=== PATIENT | female | born 1950 | race Caucasian/White ===

== ENCOUNTER 2017-02-19 07:20 | Day surgery (SDC) | payer BC, OTHER ==
[2017-02-19 07:57] LABS: *BILIRUBIN,URIN NEGATIVE (NEGATIVE); *BLOOD, URINE 1+ (NEGATIVE); *CLARITY,URINE CLEAR (CLEAR); *COLOR,URINE YELLOW (YELLOW); *KETONES,URINE NEGATIVE (NEGATIVE); *PROTEIN,URINE NEGATIVE (NEGATIVE); *UROBILINOGEN,URINE 0.2 E.U./dl (NORMAL); NITRITE, URINE NEGATIVE (NEGATIVE); PH,URINE 6.5 (5.0-8.0); UGLUCOSE NEGATIVE (NEGATIVE)
[2017-02-19 08:01] LABS: BASOPHILS % (AUTO) 0.6 % (0.0-2.0); EOSINOPHILS # (AUTO) 0.2 K/uL (0.0-0.7); HEMATOCRIT 41.5 % (37-47); LYMPHOCYTES % (AUTO) 38.1 % (20.5-51.5); MEAN CORPUSCULAR HEMOGLOBIN 29.3 UUG (27.0-31.0); MEAN CORPUSCULAR HGB CONC 34 g/dL (32.0-37.0); MEAN CORPUSCULAR VOLUME 87.1 FL (81.0-99.0); MONOCYTES # (AUTO) 0.4 K/UL (0.1-1.30); MONOCYTES % (AUTO) 6.9 % (0.0-11.0); NEUTROPHILS # (AUTO) 2.6 K/UL (1.8-8.9); NEUTROPHILS % (AUTO) 50.4 % (38.5-71.5); PLATELET COUNT (AUTO) 334 K/UL (150-450); RED BLOOD CELL COUNT(AUTO) 4.76 MIL/UL (4.2-5.4); RED CELL DISTRIBUTION WIDTH 12.1 % (11.5-14.5); WHITE BLOOD COUNT (AUTO) 5.2 K/UL (4.0-11.2)
[2017-02-19 08:10] LABS: LEUKOCYTE ESTERASE ,URINE TRACE (NEGATIVE)
[2017-02-19 08:11] LABS: BACTERIA,URINE FEW /HPF (NONE SEEN); MUCUS,URINE FEW /LPF (0-FEW); SQUAMOUS EPITHELIAL CELL,UR MODERATE /HPF (NONE SEEN); WBC,URINE 0-3 /HPF (0-3)
[2017-02-19 08:13] LABS: CALCIUM 8.5 mg/dL (8.5-10.1); CREATININE 0.9 mg/dL (0.6-1.3); POTASSIUM 4.2 mmol/L (3.5-5.1)
[2017-02-19] MEDS ORDERED: BALANCED SALT IRRIG SOLN COMB2 15 ML IRRIG.SOLN ONE (08:37)
[2017-02-19] MEDS ORDERED: BUPIVACAINE/EPI PF 0.5% 10 ML VIAL ONE (08:37)
[2017-02-19] MEDS ORDERED: NEO/POLYMYX B/DEXAME OPHT OINT 3.5 GM TUBE ONE (08:37)
[2017-02-19] MEDS ORDERED: TETRACAINE HCL 0.5% OPHT DROP 2 ML BOTTLE ONE (08:37)
[2017-02-19] MEDS ORDERED: LIDOCAINE 2%-EPI 1:100,000 20 ML VIAL ONE (08:37)
[2017-02-19] MEDS ORDERED: FENTANYL CITRATE 100 MCG/2 ML AMPUL ONE ×2 (09:15→11:05)
[2017-02-19] MEDS ORDERED: MIDAZOLAM HCL 2 MG/2 ML VIAL ONE (09:15)
[2017-02-19] MEDS ORDERED: PROPOFOL 200 MG/20 ML BOTTLE IV ONE (15:20)
[2017-02-19] MEDS ORDERED: IV LACTATED RINGERS SOLUTION 1,000 ML BAG IV ONE (15:21)
== END 2017-02-19 12:20 | disposition home or self-care (01) ==
LOC: DS 07:20
PROVIDERS: ATTEND Dermatology MOHS-Micrographic Surgery
DX: H02.002 Unspecified entropion of right lower eyelid (principal); H02.005 Unspecified entropion of left lower eyelid; Z98.890 Other specified postprocedural states; K21.9 Gastro-esophageal reflux disease without esophagitis; M53.87 Other specified dorsopathies, lumbosacral region; F41.9 Anxiety disorder, unspecified
CPT/HCPCS: 36415; 71010; 85025; 85730; 93005; A4663; J2250; J3010; J3490; J7030; J7120

== ENCOUNTER 2017-04-17 12:04 | Outpatient (CLI) | payer BC, OTHER | END 2017-04-17 23:59 | disposition home or self-care (01) | LOC: US 12:04 | DX: E04.2 Nontoxic multinodular goiter (principal) ==

== ENCOUNTER 2017-05-25 08:12 | Outpatient (CLI) | payer BC, OTHER ==
[2017-05-25 10:38] LABS: BASOPHILS % (AUTO) 0.6 % (0.0-2.0); EOSINOPHILS # (AUTO) 0.2 K/uL (0.0-0.7); EOSINOPHILS % (AUTO) 4.2 % (0.0-7.0); HEMATOCRIT 41.2 % (37-47); HEMOGLOBIN 13.8 G/DL (12.0-16.0); LYMPHOCYTES # (AUTO) 2.3 K/UL (0.8-4.8); LYMPHOCYTES % (AUTO) 44.7 % (20.5-51.5); MEAN CORPUSCULAR HEMOGLOBIN 29.9 UUG (27.0-31.0); MEAN CORPUSCULAR HGB CONC 33 g/dL (32.0-37.0); MEAN CORPUSCULAR VOLUME 89.5 FL (81.0-99.0); MONOCYTES # (AUTO) 0.3 K/UL (0.1-1.30); MONOCYTES % (AUTO) 5.3 % (0.0-11.0); NEUTROPHILS # (AUTO) 2.3 K/UL (1.8-8.9); NEUTROPHILS % (AUTO) 45.2 % (38.5-71.5); PLATELET COUNT (AUTO) 353 K/UL (150-450); RED BLOOD CELL COUNT(AUTO) 4.61 MIL/UL (4.2-5.4); WHITE BLOOD COUNT (AUTO) 5.1 K/UL (4.0-11.2)
[2017-05-25 10:47] LABS: *BILIRUBIN,URIN NEGATIVE (NEGATIVE); *BLOOD, URINE 1+ (NEGATIVE); *CLARITY,URINE CLEAR (CLEAR); *COLOR,URINE YELLOW (YELLOW); *KETONES,URINE NEGATIVE (NEGATIVE); *PROTEIN,URINE NEGATIVE (NEGATIVE); *UROBILINOGEN,URINE 0.2 E.U./dl (NORMAL); LEUKOCYTE ESTERASE ,URINE 1+ (NEGATIVE); NITRITE, URINE NEGATIVE (NEGATIVE); UGLUCOSE NEGATIVE (NEGATIVE)
[2017-05-25 11:07] LABS: BILIRUBIN,TOTAL 0.9 mg/dL (0.2-1.0); CREATININE 0.8 mg/dL (0.6-1.3); POTASSIUM 3.9 mmol/L (3.5-5.1); TOTAL PROTEIN, SERUM 7.1 g/dL (6.4-8.2)
[2017-05-25 11:29] LABS: BACTERIA,URINE FEW /HPF (NONE SEEN); SQUAMOUS EPITHELIAL CELL,UR MODERATE /HPF (NONE SEEN)
[2017-05-25 11:31] LABS: MUCUS,URINE FEW /LPF (0-FEW)
== END 2017-05-25 23:59 | disposition home or self-care (01) ==
LOC: LAB 08:12
PROVIDERS: ATTEND Internal Medicine
DX: E78.5 Hyperlipidemia, unspecified (principal); K21.9 Gastro-esophageal reflux disease without esophagitis; E04.1 Nontoxic single thyroid nodule; E55.9 Vitamin D deficiency, unspecified
CPT/HCPCS: 36415; 82306; 85025; 87086

== ENCOUNTER 2017-06-28 08:14 | Outpatient (CLI) | payer BC, OTHER ==
[2017-06-28 09:29] LABS: *BILIRUBIN,URIN NEGATIVE (NEGATIVE); *BLOOD, URINE Trace-lysed (NEGATIVE); *CLARITY,URINE CLEAR (CLEAR); *COLOR,URINE YELLOW (YELLOW); *KETONES,URINE NEGATIVE (NEGATIVE); *PROTEIN,URINE NEGATIVE (NEGATIVE); *UROBILINOGEN,URINE 0.2 E.U./dl (NORMAL); LEUKOCYTE ESTERASE ,URINE TRACE (NEGATIVE); NITRITE, URINE NEGATIVE (NEGATIVE); UGLUCOSE NEGATIVE (NEGATIVE)
[2017-06-28 09:42] LABS: CREATININE 0.8 mg/dL (0.6-1.3); POTASSIUM 3.9 mmol/L (3.5-5.1); TOTAL PROTEIN, SERUM 7.4 g/dL (6.4-8.2)
[2017-06-28 09:44] LABS: BASOPHILS % (AUTO) 0.5 % (0.0-2.0); EOSINOPHILS # (AUTO) 0.2 K/uL (0.0-0.7); EOSINOPHILS % (AUTO) 4.4 % (0.0-7.0); HEMATOCRIT 42.8 % (37-47); HEMOGLOBIN 13.9 G/DL (12.0-16.0); LYMPHOCYTES # (AUTO) 2.1 K/UL (0.8-4.8); LYMPHOCYTES % (AUTO) 39.9 % (20.5-51.5); MEAN CORPUSCULAR HEMOGLOBIN 28.9 UUG (27.0-31.0); MEAN CORPUSCULAR HGB CONC 33 g/dL (32.0-37.0); MEAN CORPUSCULAR VOLUME 88.8 FL (81.0-99.0); MONOCYTES # (AUTO) 0.3 K/UL (0.1-1.30); MONOCYTES % (AUTO) 6.6 % (0.0-11.0); NEUTROPHILS # (AUTO) 2.5 K/UL (1.8-8.9); NEUTROPHILS % (AUTO) 48.6 % (38.5-71.5); PLATELET COUNT (AUTO) 373 K/UL (150-450); RED BLOOD CELL COUNT(AUTO) 4.82 MIL/UL (4.2-5.4); WHITE BLOOD COUNT (AUTO) 5.1 K/UL (4.0-11.2)
[2017-06-28 10:06] LABS: BACTERIA,URINE FEW /HPF (NONE SEEN); MUCUS,URINE FEW /LPF (0-FEW); SQUAMOUS EPITHELIAL CELL,UR FEW /HPF (NONE SEEN)
== END 2017-06-28 23:59 | disposition home or self-care (01) ==
LOC: LAB 08:14
PROVIDERS: ATTEND Internal Medicine
DX: K21.9 Gastro-esophageal reflux disease without esophagitis (principal); R53.83 Other fatigue
CPT/HCPCS: 36415; 85025; 85730; 87086

== ENCOUNTER 2017-07-04 10:19 | Inpatient (IN) | payer BC, OTHER ==
[~2017-07-04] VITALS: Ht 170.2 cm; Wt 77.1 kg
[~2017-07-04 10:19] MED LIST: CEFAZOLIN 1 G VIAL MC ONE; DEXAMETHASONE SOD PHOSPHATE 4 MG INJ IV ONE; IV NORMAL SALINE 1000 ML BAG IV ONE; LIDOCAINE HCL 2% 20 ML VIAL MC ONE; ONDANSETRON 4 MG/2 ML VIAL IV ONE; PROPOFOL 200 MG/20 ML BOTTLE IV ONE; SEVOFLURANE 250 ML BOTTLE IH ONE; SODIUM CHLORIDE 4 MEQ/ML IV ONE
[2017-07-04] MEDS ORDERED: LIDOCAINE 1%-EPI 1:100,000 20 ML VIAL ONE (10:55)
[2017-07-04] MEDS ORDERED: LIDOCAINE HCL 1% 20 ML VIAL ONE (10:55)
[2017-07-04] MEDS ORDERED: BUPIVACAINE/EPI PF 0.25% 30 ML VIAL ONE (10:56)
[2017-07-04] MEDS ORDERED: CEFAZOLIN 2 G in IV DEXTROSE 5% 100 ML IV ONE (11:00)
[2017-07-04] MEDS ORDERED: SODIUM CHLORIDE 4 MEQ/ML IV ONE (11:00)
[2017-07-04] MEDS ORDERED: METRONIDAZOLE 500 MG/NS 100ML 500 MG in PREMIXED 1 EACH IV ONE (11:00)
[2017-07-04] MEDS ORDERED: FENTANYL CITRATE 100 MCG/2 ML AMPUL ONE ×2 (11:09→14:19)
[2017-07-04] MEDS ORDERED: THROMBIN (BOVINE) 5,000 UNITS VIAL ONE (13:02)
[2017-07-04] MEDS ORDERED: IV LACTATED RINGERS SOLUTION 1,000 ML IV PRN (13:57)
[2017-07-04] MEDS ORDERED: SENNOSIDES 1 TABLET PO PRN (14:00)
[2017-07-04] MEDS ORDERED: HYDROMORPHONE 1 MG/1 ML DISP.SYRIN IV PRN (14:00)
[2017-07-04] MEDS ORDERED: ONDANSETRON 4 MG/2 ML VIAL IV PRN (14:00)
[2017-07-04] MEDS ORDERED: DOCUSATE SODIUM 250 MG CAPSULE PO PRN (14:00)
[2017-07-04] MEDS ORDERED: HYDROCODONE/APAP 5-325MG TABLET PO PRN ×2 (14:00)
[2017-07-04] MEDS ORDERED: KETOROLAC TROMETHAMINE 30 MG INJ ONE (14:15)
[2017-07-04] MEDS ORDERED: HYDROMORPHONE 2 MG/1 ML DISP.SYRIN ONE (14:41)
[2017-07-04] MEDS ORDERED: ONDANSETRON 4 MG/2 ML VIAL ONE (14:41)
[2017-07-04] MEDS: PANTOPRAZOLE SODIUM 40 MG TABLET.DR PO SCH (15:20)
[2017-07-04 15:40] VITALS: BP 120/64
--- NOTE | 2017-07-04 15:45 | NUR ---
RECEIVED FOR ADMISSION 67 YEARS OLD FEMALE FROM [facility] S/P HEMORRHOIDECTOMY BY RUCHI TO ROOM 228.PLACED INTO BED FIXED AND MADE COMFORTABLE PATIENT IS ALERT AND ORIENTED WITH O2 AT 2L/M BY NASAL CANULA WITH NO SHORTNESS OF BREATH AT THIS TIME.IV HEPLOCK LEFT FOREARM REMAINS INTACT WITH LR IN PROGRESS AT THIS TIME.SHE HAS A RECTAL PACKING COVERED BY ABDOMINAL PAD NO BLEEDING AT THIS TIME.PATIENT IS ON CLEAR LIQUIDS ICE CHIPS AND WATER GIVEN AND TOLERATED WELL DENIES NAUSEA OR VOMITING AT THIS TIME.
[2017-07-04 15:55] VITALS: BP 97/52
[2017-07-04 16:10] VITALS: BP 110/59
[2017-07-04 16:40] VITALS: BP 101/55
[2017-07-04 17:10] VITALS: BP 104/59
[2017-07-04] MEDS: IV NS 1000 ML 1,000 ML IV PRN (17:19)
[2017-07-04] MEDS: HYDROMORPHONE 2 MG/1 ML DISP.SYRIN IV PRN (17:31)
--- NOTE | 2017-07-04 18:00 | NUR ---
ASSISTED PATIENT TO THE BATHROOM AND SHE VOIDED AND BACK INTO BED MEDICATED FOR C/O PAIN AND DISCOMFORTS AT THIS TIME AND WILL OBSERVE.
--- NOTE | 2017-07-04 19:10 | NUR ---
Report received from Iva Garland RN. Pt resting calmly in bed with no signs or evidence of distress. Pt on 2L O2 via nasal cannula, tolerating well. Respirations even and unlabored. Pt denies significant pain but reports 2 episodes of vomiting during day shift (around 1500 and 1820). Does not request any interventions at this time. No evidence of bleeding present. Pt educated about rectal packing, pt verbalizes understanding. Bed in lowest position, call light and personal items within reach, side rails up x2, room free of clutter. Care of pt assumed at this time. Will continue to monitor.
[2017-07-04 20:18] VITALS: BP 104/52
[2017-07-04] MEDS ORDERED: ZOLPIDEM 5 MG TABLET PO PRN (21:30)
[2017-07-04] MEDS ORDERED: LACTULOSE 20 G/30 ML LIQUID UDC PO PRN (21:30)
[2017-07-04] MEDS ORDERED: ACETAMINOPHEN 325 MG TABLET PO PRN (21:30)
[2017-07-05] MEDS: IV NS 1000 ML 1,000 ML IV PRN ×3 (01:27→21:46)
[2017-07-05] MEDS: HYDROMORPHONE 2 MG/1 ML DISP.SYRIN IV PRN ×2 (01:42→06:52)
--- NOTE | 2017-07-05 01:47 | NUR ---
Pt reports 8/10 pain at surgical site. Pt medicated with Dilaudid 0.5mg IVP per MD order. Pt tolerating ice chips at this time. No additional episodes of nausea/vomiting. Respirations even and unlabored. No complications reported or observed. IV fluids running per MD order. Bed in lowest position, call light and personal items within reach, side rails up x2, room free of clutter. Will continue to monitor.
--- NOTE | 2017-07-05 03:39 | NUR ---
Pt awake and resting calmly in bed with no complaint or evidence of distress. IV fluids running per MD order. Bed in lowest position, call light and personal items within reach, side rails up x2, room free of clutter. Will continue to monitor.
[2017-07-05 06:00] VITALS: BP 97/48
[2017-07-05] MEDS: PANTOPRAZOLE SODIUM 40 MG TABLET.DR PO SCH (06:51)
--- NOTE | 2017-07-05 07:34 | NUR ---
Report given to KEILA Caro.
[2017-07-05 07:36] VITALS: BP 99/58
[2017-07-05 07:58] LABS: EOSINOPHILS % (AUTO) 0.2 % (0.0-7.0); HEMOGLOBIN 13.2 G/DL (12.0-16.0); LYMPHOCYTES # (AUTO) 1.8 K/UL (0.8-4.8); LYMPHOCYTES % (AUTO) 23.7 % (20.5-51.5); MEAN CORPUSCULAR HEMOGLOBIN 30.1 UUG (27.0-31.0); MEAN CORPUSCULAR HGB CONC 34 g/dL (32.0-37.0); MEAN CORPUSCULAR VOLUME 88.8 FL (81.0-99.0); MONOCYTES # (AUTO) 0.5 K/UL (0.1-1.30); MONOCYTES % (AUTO) 6.4 % (0.0-11.0); NEUTROPHILS # (AUTO) 5.4 K/UL (1.8-8.9); NEUTROPHILS % (AUTO) 69.7 % (38.5-71.5); PLATELET COUNT (AUTO) 328 K/UL (150-450)
[2017-07-05 07:59] LABS: WHITE BLOOD COUNT (AUTO) 7.7 K/UL (4.0-11.2)
--- NOTE | 2017-07-05 08:00 | NUR ---
CONTINUE WITH PAIN MANAGEMENT, IVF AT 100ML/HR. NO SIGNS OF BLEEDING FROM RECTAL AREA. AFEBRILE
[2017-07-05] MEDS: DOCUSATE SODIUM 100 MG CAPSULE PO SCH ×2 (08:33→20:28)
[2017-07-05] MEDS ORDERED: ROSU10TA PO (09:22)
[2017-07-05] MEDS ORDERED: OMEP20CA10 PO (09:22)
[2017-07-05] MEDS ORDERED: HYDROMORPHONE 1 MG/1 ML DISP.SYRIN IV PRN (09:30)
[2017-07-05] MEDS ORDERED: HYDROMORPHONE 2 MG/1 ML DISP.SYRIN IV PRN (09:45)
[2017-07-05 10:17] LABS: CREATININE 0.9 mg/dL (0.6-1.3); PHOSPHOROUS 3.9 mg/dL (2.5-4.9); POTASSIUM 3.9 mmol/L (3.5-5.1)
[2017-07-05 11:06] VITALS: BP 100/53
--- NOTE | 2017-07-05 12:00 | NUR ---
PATIENT UNABLE TO URINATE SINCE 2300 LAST NIGHT BLADDER SCAN READS 500 MD MADE AWARE
[2017-07-05] MEDS: MORPHINE SULFATE 2 MG/1 ML DISP.SYRIN IV PRN ×2 (12:13→16:50)
[2017-07-05 15:26] VITALS: BP 106/52
--- NOTE | 2017-07-05 15:34 | NUR ---
CONTINUE WITH CLEAR LIQUID DIET STILL WITH ON AND OFF VOMITING OF FOOD PREVIOUSLY TAKEN RELIEVED WITH ZOFRAN
--- NOTE | 2017-07-05 15:41 | NUR ---
PATIENT VOIDED FREELY 300 ML DARK SHARLA URINE
[2017-07-05 20:44] VITALS: BP 104/47
[2017-07-05] MEDS ORDERED: KETOROLAC TROMETHAMINE 30 MG INJ IVP ONE (21:30)
[2017-07-05] MEDS: KETOROLAC TROMETHAMINE 30 MG INJ IVP SCH (21:42)
[2017-07-05] MEDS ORDERED: KETOROLAC TROMETHAMINE 30 MG INJ ONE (21:52)
--- NOTE | 2017-07-05 22:56 | NUR ---
RECEIVED PATIENT COMFORTABLE LAYING IN BED. ALERT AND ORIENTED X4. PAIN OF 5/10. DR. WIGGINS CALLED AT 2135 HRS WITH VERBAL ORDER OF TORADOL 30 MG Q6H X 4 DOSES. FIRST DOSE GIVEN ORDERED. DIET CHANGED DIET TO FULL LIQUID ALSO ORDERED. CONTINUE IVF. PATIENT IS VOIDING WITH NO COMPLAINTS. OTHERWISE NO RECTAL BLEEDING NOTED. VSS. CALL LIGHT WITHIN REACH.
[2017-07-06] MEDS ORDERED: HALOPERIDOL LACTATE 5 MG/1 ML VIAL IM PRN (00:30)
[2017-07-06] MEDS: KETOROLAC TROMETHAMINE 30 MG INJ IVP SCH (03:49)
[2017-07-06] MEDS ORDERED: KETOROLAC TROMETHAMINE 30 MG INJ ONE (03:59)
[2017-07-06 04:00] VITALS: BP 96/43
--- NOTE | 2017-07-06 05:49 | NUR ---
PATIENT SLEPT INTERMITTENTLY THROUGH THE NIGHT WITH ONLY MILD PAIN COMPLAINT. NO NAUSEA OR RECTAL BLEEDING. VITAL SIGNS STABLE. BP 96/47 THIS MORNING NO DIZZINESS. OTHERWISE PATIENT IS STABLE NO RESPIRATORY DISTRESS OR FEVER. CALL LIGHT WITHIN REACH. SECOND DOSE OF TORADOL GIVEN AT 4 AM. ALL NEEDS ATTENDED.
[2017-07-06] MEDS: IV NS 1000 ML 1,000 ML IV PRN (06:21)
[2017-07-06] MEDS: PANTOPRAZOLE SODIUM 40 MG TABLET.DR PO SCH (06:21)
[2017-07-06 07:58] LABS: CREATININE 0.8 mg/dL (0.6-1.3); MAGNESIUM 1.8 mg/dL (1.8-2.4); POTASSIUM 3.4 mmol/L (3.5-5.1)
[2017-07-06 08:03] LABS: BASOPHILS % (AUTO) 0.8 % (0.0-2.0); EOSINOPHILS # (AUTO) 0.1 K/uL (0.0-0.7); EOSINOPHILS % (AUTO) 1.9 % (0.0-7.0); HEMATOCRIT 34.4 % (31.2-41.9); HEMOGLOBIN 11.8 g/dL (10.9-14.3); LYMPHOCYTES # (AUTO) 2.1 K/uL (20.0-40.0); LYMPHOCYTES % (AUTO) 37.5 % (20.5-51.5); MEAN CORPUSCULAR HEMOGLOBIN 30.2 uug (24.7-32.8); MEAN CORPUSCULAR HGB CONC 34 g/dL (32.3-35.6); MEAN CORPUSCULAR VOLUME 87.7 fL (75.5-95.3); MONOCYTES # (AUTO) 0.4 K/uL (2.0-10.0); MONOCYTES % (AUTO) 7.4 % (0.0-11.0); NEUTROPHILS # (AUTO) 2.9 K/uL (1.8-8.9); NEUTROPHILS % (AUTO) 52.4 % (38.5-71.5); RED BLOOD CELL COUNT(AUTO) 3.92 MIL/uL (3.63-4.92)
[2017-07-06] MEDS: DOCUSATE SODIUM 100 MG CAPSULE PO SCH (08:03)
[2017-07-06 08:19] LABS: WHITE BLOOD COUNT (AUTO) 5.5 K/uL (3.8-11.8)
[2017-07-06 08:20] LABS: PLATELET COUNT (AUTO) 249 K/uL (179-408)
[2017-07-06 11:09] VITALS: BP 102/42
[2017-07-06] MEDS ORDERED: POTASSIUM CHLORIDE 20 MEQ TAB.PRT.SR PO ONE (13:30)
[2017-07-06] MEDS ORDERED: DOCU-141 PO (13:37)
[2017-07-06] MEDS ORDERED: HYDR-3326 PO (13:37)
[2017-07-06] MEDS ORDERED: SENN-18 PO (13:37)
--- NOTE | 2017-07-06 13:50 | NUR ---
pt seen by dr irving
--- NOTE | 2017-07-06 14:19 | NUR ---
d/c orders received noted and carried out.d/c instructions and educations given to the pt.d/c heplock per md orders,pt verbalized understanding all the instructions.pt left the facility via private car with her in stable condition.
== END 2017-07-06 14:20 | disposition home or self-care (01) | DRG 331 ==
LOC: DS 10:19 → MED 15:09
PROVIDERS: ADMIT Surgery; ATTEND Surgery
PROC: 0DQP8ZZ Repair Rectum, Via Natural or Artificial Opening Endoscopic (ICD-10-PCS; principal; 2017-07-04 12:30)
PROC: 3E033TZ Introduction of Destructive Agent into Peripheral Vein, Percutaneous Approach (ICD-10-PCS; principal; 2017-07-04 12:30)
PROC: 06LY4ZC Occlusion of Hemorrhoidal Plexus, Percutaneous Endoscopic Approach (ICD-10-PCS; principal; 2017-07-04 12:30)
DX: K62.3 Rectal prolapse (principal); E83.51 Hypocalcemia; E55.9 Vitamin D deficiency, unspecified; K64.8 Other hemorrhoids; K64.4 Residual hemorrhoidal skin tags; E78.5 Hyperlipidemia, unspecified; K21.9 Gastro-esophageal reflux disease without esophagitis; D32.9 Benign neoplasm of meninges, unspecified; R33.0 Drug induced retention of urine; T40.2X5A Adverse effect of other opioids, initial encounter; Y92.009 Unspecified place in unspecified non-institutional (private) residence as the place of occurrence of the external cause; E04.2 Nontoxic multinodular goiter
CPT/HCPCS: 36415; 83735; 84100; 85025; A4649; A4663; J0690; J1100; J1170; J1885; J2270; J2405; J3010; J3490; J7030; J7060; J7131

== ENCOUNTER 2017-09-12 07:46 | Outpatient (CLI) | payer BC, OTHER ==
[~2017-09-12 07:46] MED LIST changes: -CEFAZOLIN 1 G VIAL MC ONE; -DEXAMETHASONE SOD PHOSPHATE 4 MG INJ IV ONE; +DOCU-141 PO; +HYDR-3326 PO; -IV NORMAL SALINE 1000 ML BAG IV ONE; -LIDOCAINE HCL 2% 20 ML VIAL MC ONE; +OMEP20CA10 PO; -ONDANSETRON 4 MG/2 ML VIAL IV ONE; -PROPOFOL 200 MG/20 ML BOTTLE IV ONE; +ROSU10TA PO; +SENN-18 PO; -SEVOFLURANE 250 ML BOTTLE IH ONE; -SODIUM CHLORIDE 4 MEQ/ML IV ONE
[2017-09-12 09:31] LABS: BILIRUBIN,TOTAL 0.6 mg/dL (0.2-1.0); CREATININE 0.9 mg/dL (0.6-1.3); POTASSIUM 3.7 mmol/L (3.5-5.1); TOTAL PROTEIN, SERUM 7.4 g/dL (6.4-8.2)
== END 2017-09-12 23:59 | disposition home or self-care (01) ==
LOC: LAB 07:46
DX: K21.9 Gastro-esophageal reflux disease without esophagitis (principal); E78.5 Hyperlipidemia, unspecified
CPT/HCPCS: 36415

== ENCOUNTER 2017-12-13 07:07 | Outpatient (CLI) | payer BC, OTHER ==
[2017-12-13 08:55] LABS: BILIRUBIN,TOTAL 0.8 mg/dL (0.2-1.0); CREATININE 0.8 mg/dL (0.6-1.3); TOTAL PROTEIN, SERUM 6.9 g/dL (6.4-8.2)
== END 2017-12-13 23:59 | disposition home or self-care (01) ==
LOC: LAB 07:07
DX: E78.5 Hyperlipidemia, unspecified (principal); K21.9 Gastro-esophageal reflux disease without esophagitis
CPT/HCPCS: 36415; 82306

== ENCOUNTER 2018-02-04 10:17 | Outpatient (CLI) | payer BC, OTHER | END 2018-02-04 23:59 | disposition home or self-care (01) | LOC: RAD 10:17 | DX: E04.2 Nontoxic multinodular goiter (principal) ==

== ENCOUNTER 2018-02-18 07:21 | Outpatient (CLI) | payer BC, OTHER ==
[2018-02-18 10:03] LABS: BASOPHILS % (AUTO) 0.7 % (0.0-2.0); EOSINOPHILS # (AUTO) 0.2 K/uL (0.0-0.7); EOSINOPHILS % (AUTO) 4.3 % (0.0-7.0); HEMATOCRIT 39.6 % (31.2-41.9); HEMOGLOBIN 13.6 g/dL (10.9-14.3); LYMPHOCYTES # (AUTO) 2.1 K/uL (20.0-40.0); LYMPHOCYTES % (AUTO) 41.1 % (20.5-51.5); MEAN CORPUSCULAR HEMOGLOBIN 30.5 uug (24.7-32.8); MEAN CORPUSCULAR HGB CONC 34 g/dL (32.3-35.6); MEAN CORPUSCULAR VOLUME 88.7 fL (75.5-95.3); MONOCYTES # (AUTO) 0.3 K/uL (2.0-10.0); MONOCYTES % (AUTO) 5.6 % (0.0-11.0); NEUTROPHILS # (AUTO) 2.5 K/uL (1.8-8.9); NEUTROPHILS % (AUTO) 48.3 % (38.5-71.5); PLATELET COUNT (AUTO) 311 K/uL (179-408); RED BLOOD CELL COUNT(AUTO) 4.46 MIL/uL (3.63-4.92); WHITE BLOOD COUNT (AUTO) 5.1 K/uL (3.8-11.8)
[2018-02-18 10:29] LABS: *BILIRUBIN,URIN NEGATIVE (NEGATIVE); *BLOOD, URINE Trace-lysed (NEGATIVE); *CLARITY,URINE CLEAR (CLEAR); *COLOR,URINE YELLOW (YELLOW); *KETONES,URINE NEGATIVE (NEGATIVE); *PROTEIN,URINE NEGATIVE (NEGATIVE); *UROBILINOGEN,URINE 0.2 E.U./dl (NORMAL); LEUKOCYTE ESTERASE ,URINE 1+ (NEGATIVE); NITRITE, URINE NEGATIVE (NEGATIVE); UGLUCOSE NEGATIVE (NEGATIVE)
[2018-02-18 10:38] LABS: BILIRUBIN,TOTAL 0.9 mg/dL (0.2-1.0); CREATININE 0.9 mg/dL (0.6-1.3); POTASSIUM 4.5 mmol/L (3.5-5.1); TOTAL PROTEIN, SERUM 6.7 g/dL (6.4-8.2)
[2018-02-18 10:49] LABS: THYROID STIMULATING HORMONE 2.29 mIU/mL (0.358-3.740)
[2018-02-18 10:50] LABS: BACTERIA,URINE NONE SEEN /HPF (NONE SEEN); MUCUS,URINE FEW /LPF (0-FEW); RBC,URINE 0-3 /HPF (0-3); SQUAMOUS EPITHELIAL CELL,UR FEW /HPF (NONE SEEN); WBC,URINE 0-3 /HPF (0-3)
[2018-02-18 11:03] LABS: *OCCULT BLOOD STOOL NEGATIVE (NEGATIVE)
[2018-02-19 07:06] LABS: VIT D, 25-HYDROXY 46.4 ng/mL (30.0-100.0)
[2018-02-19 08:07] LABS: TRIIODOTHYRONINE, FREE 2.7 pg/mL (2.0-4.4)
[2018-02-19 08:30] LABS: *OCCULT BLOOD STOOL NEGATIVE (NEGATIVE)
[2018-02-20 10:21] LABS: *OCCULT BLOOD STOOL NEGATIVE (NEGATIVE)
== END 2018-02-18 23:59 | disposition home or self-care (01) ==
LOC: LAB 07:21
PROVIDERS: ATTEND Radiology Vascular & Interventional Radiology
DX: K21.9 Gastro-esophageal reflux disease without esophagitis (principal); E55.9 Vitamin D deficiency, unspecified; E78.5 Hyperlipidemia, unspecified; E04.1 Nontoxic single thyroid nodule
CPT/HCPCS: 36415; 82306; 84443; 84481; 85025; 85651; 86140

== ENCOUNTER 2018-02-22 07:43 | Outpatient (CLI) | payer BC, OTHER ==
[2018-02-23 05:06] LABS: THYROID PEROXIDASE (TPO) AB 13 IU/mL (0-34)
== END 2018-02-22 23:59 | disposition home or self-care (01) ==
LOC: LAB 07:43
PROVIDERS: ATTEND Radiology Vascular & Interventional Radiology
DX: E04.1 Nontoxic single thyroid nodule (principal)
CPT/HCPCS: 36415

== ENCOUNTER 2018-02-26 07:37 | Outpatient (CLI) | payer BC, OTHER | END 2018-02-26 23:59 | disposition home or self-care (01) | LOC: CT 07:37 → RAD 23:59 | PROVIDERS: ATTEND Radiology Vascular & Interventional Radiology | DX: J01.20 Acute ethmoidal sinusitis, unspecified (principal); R51 Headache | CPT/HCPCS: 70486 ==

== ENCOUNTER 2018-06-13 07:00 | Outpatient (CLI) | payer BC, OTHER ==
[2018-06-13 10:39] LABS: BILIRUBIN,TOTAL 0.8 mg/dL (0.2-1.0); CREATININE 0.8 mg/dL (0.6-1.3); POTASSIUM 3.8 mmol/L (3.5-5.1); TOTAL PROTEIN, SERUM 6.8 g/dL (6.4-8.2)
[2018-06-13 10:44] LABS: THYROID STIMULATING HORMONE 2.176 mIU/mL (0.358-3.740)
[2018-06-14 08:06] LABS: ESTRADIOL <6.0 pg/mL (.); FOLLICLE STIMULATION HORMONE 50.8 mIU/mL (.); LUTEINIZING HORMONE 20.3 mIU/mL (.)
== END 2018-06-13 23:59 | disposition home or self-care (01) ==
LOC: LAB 07:00
DX: K21.9 Gastro-esophageal reflux disease without esophagitis (principal); E03.9 Hypothyroidism, unspecified; E78.5 Hyperlipidemia, unspecified; F41.9 Anxiety disorder, unspecified
CPT/HCPCS: 36415; 82670; 83001; 83002; 84443

== ENCOUNTER 2018-10-29 06:43 | Outpatient (CLI) | payer BC, OTHER ==
[~2018-10-29 06:43] MED LIST changes: -ROSU10TA PO; +ROSU10TA2 PO
[2018-10-29 07:51] LABS: BASOPHILS # (AUTO) 0.1 K/uL (0.0-8.0); BASOPHILS % (AUTO) 0.9 % (0.0-2.0); EOSINOPHILS # (AUTO) 0.3 K/uL (0.0-0.7); EOSINOPHILS % (AUTO) 4.2 % (0.0-7.0); HEMATOCRIT 39.5 % (31.2-41.9); HEMOGLOBIN 13.8 g/dL (10.9-14.3); LYMPHOCYTES % (AUTO) 32.4 % (20.5-51.5); MEAN CORPUSCULAR HEMOGLOBIN 31.3 uug (24.7-32.8); MEAN CORPUSCULAR HGB CONC 35 g/dL (32.3-35.6); MEAN CORPUSCULAR VOLUME 89.5 fL (75.5-95.3); MONOCYTES # (AUTO) 0.4 K/uL (2.0-10.0); MONOCYTES % (AUTO) 6.1 % (0.0-11.0); NEUTROPHILS # (AUTO) 3.5 K/uL (1.8-8.9); NEUTROPHILS % (AUTO) 56.4 % (38.5-71.5); PLATELET COUNT (AUTO) 334 K/uL (179-408); RED BLOOD CELL COUNT(AUTO) 4.41 MIL/uL (3.63-4.92); WHITE BLOOD COUNT (AUTO) 6.2 K/uL (3.8-11.8)
[2018-10-29 08:02] LABS: BILIRUBIN,TOTAL 0.8 mg/dL (0.2-1.0); CREATININE 0.8 mg/dL (0.6-1.3); POTASSIUM 4.1 mmol/L (3.5-5.1)
[2018-10-29 08:29] LABS: THYROID STIMULATING HORMONE 1.993 mIU/mL (0.358-3.740)
== END 2018-10-29 23:59 | disposition home or self-care (01) ==
LOC: LAB 06:43
DX: K21.9 Gastro-esophageal reflux disease without esophagitis (principal); E78.5 Hyperlipidemia, unspecified; E03.9 Hypothyroidism, unspecified
CPT/HCPCS: 36415; 84443; 85025

== ENCOUNTER 2019-01-20 10:37 | Emergency (ER) | payer BC, MEDICARE, OTHER ==
[~2019-01-20] VITALS: Ht 167.6 cm; Wt 72.6 kg
[2019-01-20 11:33] LABS: BASOPHILS % (AUTO) 0.6 % (0.0-2.0); EOSINOPHILS # (AUTO) 0.2 K/uL (0.0-0.7); EOSINOPHILS % (AUTO) 3.1 % (0.0-7.0); HEMATOCRIT 39.9 % (31.2-41.9); HEMOGLOBIN 13.2 g/dL (10.9-14.3); LYMPHOCYTES # (AUTO) 1.7 K/uL (20.0-40.0); LYMPHOCYTES % (AUTO) 32.6 % (20.5-51.5); MEAN CORPUSCULAR HEMOGLOBIN 29.4 uug (24.7-32.8); MEAN CORPUSCULAR HGB CONC 33 g/dL (32.3-35.6); MEAN CORPUSCULAR VOLUME 88.5 fL (75.5-95.3); MONOCYTES # (AUTO) 0.3 K/uL (2.0-10.0); MONOCYTES % (AUTO) 6.4 % (0.0-11.0); NEUTROPHILS % (AUTO) 57.3 % (38.5-71.5); PLATELET COUNT (AUTO) 303 K/uL (179-408); RED BLOOD CELL COUNT(AUTO) 4.51 MIL/uL (3.63-4.92); WHITE BLOOD COUNT (AUTO) 5.2 K/uL (3.8-11.8)
[2019-01-20 11:39] LABS: CREATININE 0.8 mg/dL (0.6-1.3)
[2019-01-20 11:45] LABS: BILIRUBIN,DIRECT 0.2 mg/dL (0.0-0.2); BILIRUBIN,TOTAL 0.8 mg/dL (0.2-1.0); TOTAL PROTEIN, SERUM 6.9 g/dL (6.4-8.2)
--- NOTE | 2019-01-20 12:28 | NUR ---
Patient discharged to home in stable conditon. Written and verbal after care instructions given. Patient verbalizes understanding of instructions.pt walks inc steady gait. pt says feels better.
[2019-01-20 12:29] VITALS: BP 112/61
== END 2019-01-20 12:30 | disposition home or self-care (01) ==
LOC: ER 10:37
DX: S06.0X0A Concussion without loss of consciousness, initial encounter (principal); F07.81 Postconcussional syndrome; K21.9 Gastro-esophageal reflux disease without esophagitis; Z79.899 Other long term (current) drug therapy; W22.8XXA Striking against or struck by other objects, initial encounter; Y93.89 Activity, other specified; Y92.89 Other specified places as the place of occurrence of the external cause; Y99.8 Other external cause status
CPT/HCPCS: 36415; 70030-TC; 70450; 72125; 85025; A4663

== ENCOUNTER 2019-02-07 07:19 | Outpatient (CLI) | payer BC, OTHER ==
[2019-02-07 07:42] LABS: BASOPHILS % (AUTO) 0.9 % (0.0-2.0); EOSINOPHILS # (AUTO) 0.2 K/uL (0.0-0.7); HEMATOCRIT 40.7 % (31.2-41.9); HEMOGLOBIN 13.5 g/dL (10.9-14.3); LYMPHOCYTES # (AUTO) 1.9 K/uL (20.0-40.0); LYMPHOCYTES % (AUTO) 41.8 % (20.5-51.5); MEAN CORPUSCULAR HEMOGLOBIN 29.6 uug (24.7-32.8); MEAN CORPUSCULAR HGB CONC 33 g/dL (32.3-35.6); MEAN CORPUSCULAR VOLUME 89.1 fL (75.5-95.3); MONOCYTES # (AUTO) 0.3 K/uL (2.0-10.0); MONOCYTES % (AUTO) 6.4 % (0.0-11.0); NEUTROPHILS # (AUTO) 2.2 K/uL (1.8-8.9); NEUTROPHILS % (AUTO) 46.9 % (38.5-71.5); PLATELET COUNT (AUTO) 316 K/uL (179-408); RED BLOOD CELL COUNT(AUTO) 4.56 MIL/uL (3.63-4.92); WHITE BLOOD COUNT (AUTO) 4.6 K/uL (3.8-11.8)
[2019-02-07 07:44] LABS: *BILIRUBIN,URIN NEGATIVE (NEGATIVE); *CLARITY,URINE CLEAR (CLEAR); *COLOR,URINE YELLOW (YELLOW); *KETONES,URINE NEGATIVE (NEGATIVE); *UROBILINOGEN,URINE 0.2 E.U./dl (NORMAL); LEUKOCYTE ESTERASE ,URINE NEGATIVE (NEGATIVE); NITRITE, URINE NEGATIVE (NEGATIVE); UGLUCOSE NEGATIVE (NEGATIVE)
[2019-02-07 07:45] LABS: *BLOOD, URINE NEGATIVE (NEGATIVE)
[2019-02-07 07:47] LABS: BACTERIA,URINE FEW /HPF (NONE SEEN); RBC,URINE NONE SEEN /HPF (0-3); SQUAMOUS EPITHELIAL CELL,UR FEW /HPF (NONE SEEN); WBC,URINE NONE SEEN /HPF (0-3)
[2019-02-07 07:54] LABS: CREATININE 0.8 mg/dL (0.6-1.3); POTASSIUM 3.9 mmol/L (3.5-5.1)
== END 2019-02-07 23:59 | disposition home or self-care (01) ==
LOC: LAB 07:19
PROVIDERS: ATTEND Surgery
DX: Z01.818 Encounter for other preprocedural examination (principal)
CPT/HCPCS: 36415; 85025; 85610

== ENCOUNTER 2019-02-10 08:25 | Day surgery (SDC) | payer BC, OTHER ==
[2019-02-10] MEDS ORDERED: IV LACTATED RINGERS SOLUTION 1,000 ML BAG IV ONE (08:26)
[2019-02-10] MEDS ORDERED: IRR STERIL WATER FOR IRR 1000 ML BOTTLE IR ONE (08:26)
[2019-02-10] MEDS ORDERED: LIDOCAINE HCL 2% 20 ML VIAL MC ONE (08:26)
[2019-02-10] MEDS ORDERED: SIMETHICONE 40 MG/0.6 ML, 30ML BOTTLE MC ONE (08:26)
[2019-02-10] MEDS ORDERED: PROPOFOL 200 MG/20 ML BOTTLE IV ONE (08:26)
[2019-02-10] MEDS ORDERED: FENTANYL CITRATE 100 MCG/2 ML AMPUL ONE (10:23)
== END 2019-02-10 13:00 | disposition home or self-care (01) ==
LOC: DS 08:25
PROVIDERS: ATTEND Surgery
DX: Z12.11 Encounter for screening for malignant neoplasm of colon (principal); K62.1 Rectal polyp; K63.5 Polyp of colon; K31.7 Polyp of stomach and duodenum; K44.9 Diaphragmatic hernia without obstruction or gangrene; K22.2 Esophageal obstruction; K64.4 Residual hemorrhoidal skin tags; K56.2 Volvulus; K21.9 Gastro-esophageal reflux disease without esophagitis; Z86.010 Personal history of colon polyps; Z79.899 Other long term (current) drug therapy; Z98.890 Other specified postprocedural states; Z80.41 Family history of malignant neoplasm of ovary; Z80.3 Family history of malignant neoplasm of breast; I10 Essential (primary) hypertension; I45.10 Unspecified right bundle-branch block; F41.9 Anxiety disorder, unspecified
CPT/HCPCS: 43239; 45380; 71045; J3010; J3490; J7120 ×2; A4217; A4663

== ENCOUNTER 2019-03-27 13:15 | Emergency (ER) | payer BC, OTHER ==
[~2019-03-27] VITALS: Ht 167.6 cm; Wt 76.7 kg
--- NOTE | 2019-03-27 13:37 | NUR ---
RECEIVED PT AMBULATORY, NOT IN DISTRESS CC OF R EYE ABRASION +PAIN / , +SWELLING +R ARM PAIN FROM A FALLEN CABINET DOOR WHILE AT WORK. 1338 MD AT BEDSIDE FOR HISTORY AND PHYSICAL.
[2019-03-27] MEDS ORDERED: ACETAMINOPHEN ES 500 MG TABLET ONE (13:41)
[2019-03-27] MEDS ORDERED: ACETAMINOPHEN ES 500 MG TABLET PO ONE (13:45)
--- NOTE | 2019-03-27 13:49 | NUR ---
Patient discharged to home in stable conditon. Written and verbal after care instructions given. Patient verbalizes understanding of instructions. Ambulatory, AOx4, all belongings with patient.
[2019-03-27 13:52] VITALS: BP 128/69
== END 2019-03-27 13:53 | disposition home or self-care (01) ==
LOC: ER 13:15
DX: S00.83XA Contusion of other part of head, initial encounter (principal); S49.91XA Unspecified injury of right shoulder and upper arm, initial encounter; Z79.899 Other long term (current) drug therapy; W18.39XA Other fall on same level, initial encounter; Y93.89 Activity, other specified; Y92.89 Other specified places as the place of occurrence of the external cause; Y99.8 Other external cause status
CPT/HCPCS: A4663; A9150

== ENCOUNTER 2019-04-01 07:19 | Outpatient (CLI) | payer BC, OTHER ==
[2019-04-01 07:59] LABS: IRON, SERUM 85 ug/dL (50-175)
[2019-04-01 08:01] LABS: *BILIRUBIN,URIN NEGATIVE (NEGATIVE); *CLARITY,URINE CLEAR (CLEAR); *COLOR,URINE YELLOW (YELLOW); *KETONES,URINE NEGATIVE (NEGATIVE); *UROBILINOGEN,URINE 0.2 E.U./dl (NORMAL); LEUKOCYTE ESTERASE ,URINE 2+ (NEGATIVE); NITRITE, URINE NEGATIVE (NEGATIVE); UGLUCOSE NEGATIVE (NEGATIVE)
[2019-04-01 08:03] LABS: *BLOOD, URINE TRACE LYSED (NEGATIVE); BASOPHILS % (AUTO) 0.6 % (0.0-2.0); EOSINOPHILS # (AUTO) 0.2 K/uL (0.0-0.7); EOSINOPHILS % (AUTO) 3.4 % (0.0-7.0); HEMATOCRIT 41.6 % (31.2-41.9); HEMOGLOBIN 13.6 g/dL (10.9-14.3); LYMPHOCYTES # (AUTO) 1.8 K/uL (20.0-40.0); LYMPHOCYTES % (AUTO) 39.8 % (20.5-51.5); MEAN CORPUSCULAR HGB CONC 33 g/dL (32.3-35.6); MEAN CORPUSCULAR VOLUME 88.5 fL (75.5-95.3); MONOCYTES # (AUTO) 0.3 K/uL (2.0-10.0); MONOCYTES % (AUTO) 6.4 % (0.0-11.0); NEUTROPHILS # (AUTO) 2.3 K/uL (1.8-8.9); NEUTROPHILS % (AUTO) 49.8 % (38.5-71.5); PLATELET COUNT (AUTO) 329 K/uL (179-408); WHITE BLOOD COUNT (AUTO) 4.6 K/uL (3.8-11.8)
[2019-04-01 08:13] LABS: ALANINE AMINOTRANSFERASE 38 U/L (14-59); ALKALINE PHOSPHATASE 73 U/L (50-136); ASPARTATE AMINOTRANSFERASE 22 U/L (15-37); CARBON DIOXIDE 27 mmol/L (21-32); CHLORIDE 104 mmol/L (98-107); CHOLESTEROL 142 mg/dL (<200); CREATININE 0.8 mg/dL (0.6-1.3); FERRITIN 154 ng/mL (8-252); GLUCOSE 108 mg/dL (74-106); HDL CHOLESTEROL 63 mg/dL (40-60); MAGNESIUM 2.1 mg/dL (1.8-2.4); POTASSIUM 4.1 mmol/L (3.5-5.1); TOTAL PROTEIN, SERUM 7.2 g/dL (6.4-8.2); TRIGLYCERIDES 63 MG/DL (30-150); UREA NITROGEN, BLOOD 12 mg/dL (7-18)
[2019-04-01 08:53] LABS: BACTERIA,URINE NONE SEEN /HPF (NONE SEEN); SQUAMOUS EPITHELIAL CELL,UR FEW /HPF (NONE SEEN)
[2019-04-01 08:54] LABS: RBC,URINE 0-3 /HPF (0-3)
[2019-04-02 08:06] LABS: TRIIODOTHYRONINE, FREE 2.9 pg/mL (2.0-4.4)
== END 2019-04-01 23:59 | disposition home or self-care (01) ==
LOC: LAB 07:19
DX: E78.5 Hyperlipidemia, unspecified (principal); K21.9 Gastro-esophageal reflux disease without esophagitis; M85.88 Other specified disorders of bone density and structure, other site
CPT/HCPCS: 83550; 83735; 84443; 84481; 85025; 87086

== ENCOUNTER 2019-06-16 06:30 | Day surgery (SDC) | payer BC, OTHER ==
[~2019-06-16 06:30] MED LIST changes: -OMEP20CA10 PO; +OMEP20CA11 PO
[2019-06-16] MEDS ORDERED: IV NORMAL SALINE 1000 ML BAG IV ONE (06:31)
[2019-06-16] MEDS ORDERED: MIDAZOLAM HCL 2 MG/2 ML VIAL IM ONE (06:31)
[2019-06-16] MEDS ORDERED: PROPOFOL 200 MG/20 ML BOTTLE IV ONE (06:31)
[2019-06-16] MEDS ORDERED: LIDOCAINE HCL-MPF 1% 5 ML VIAL MC ONE (06:31)
[2019-06-16] MEDS ORDERED: BALANCED SALT IRRIG SOLN COMB1 500 ML, EPINEPHRINE-PF 1:1000 1 MG IO ONE ×2 (07:00)
[2019-06-16 07:05] LABS: BASOPHILS % (AUTO) 0.8 % (0.0-2.0); EOSINOPHILS # (AUTO) 0.2 K/uL (0.0-0.7); EOSINOPHILS % (AUTO) 3.8 % (0.0-7.0); HEMATOCRIT 40.5 % (31.2-41.9); HEMOGLOBIN 13.6 g/dL (10.9-14.3); LYMPHOCYTES # (AUTO) 1.8 K/uL (20.0-40.0); LYMPHOCYTES % (AUTO) 36.8 % (20.5-51.5); MEAN CORPUSCULAR HGB CONC 34 g/dL (32.3-35.6); MEAN CORPUSCULAR VOLUME 89.5 fL (75.5-95.3); MONOCYTES # (AUTO) 0.3 K/uL (2.0-10.0); MONOCYTES % (AUTO) 6.4 % (0.0-11.0); NEUTROPHILS # (AUTO) 2.5 K/uL (1.8-8.9); NEUTROPHILS % (AUTO) 52.2 % (38.5-71.5); PLATELET COUNT (AUTO) 299 K/uL (179-408); RED BLOOD CELL COUNT(AUTO) 4.53 MIL/uL (3.63-4.92); WHITE BLOOD COUNT (AUTO) 4.8 K/uL (3.8-11.8)
[2019-06-16] MEDS ORDERED: NEO/POLYMYX B/DEXAME OPHT OINT 3.5 GM TUBE ONE (07:06)
[2019-06-16] MEDS ORDERED: BUPIVACAINE PF 0.5% 30 ML VIAL ONE (07:07)
[2019-06-16] MEDS ORDERED: PILOCARPINE 1% OPHT DROP 15 ML BOTTLE ONE (07:07)
[2019-06-16] MEDS ORDERED: BALANCED SALT IRRIG SOLN COMB2 15 ML IRRIG.SOLN ONE (07:07)
[2019-06-16] MEDS ORDERED: EPINEPHRINE 1 MG/1 ML AMP ONE (07:07)
[2019-06-16] MEDS ORDERED: TETRACAINE HCL 0.5% OPHT DROP 2 ML BOTTLE ONE (07:07)
[2019-06-16] MEDS ORDERED: LIDOCAINE HCL-MPF 1% 5 ML VIAL ONE (07:07)
[2019-06-16] MEDS ORDERED: BALANCED SALT IRRIG SOLN COMB1 500 ML ONE (07:08)
[2019-06-16 07:14] LABS: CREATININE 0.8 mg/dL (0.6-1.3); POTASSIUM 4.1 mmol/L (3.5-5.1)
[2019-06-16] MEDS ORDERED: MIDAZOLAM HCL 2 MG/2 ML VIAL ONE (08:11)
[2019-06-16] MEDS ORDERED: prednisoLONE ACET 1% OPHT DROP 5 ML BOTTLE RIGHTEYE SCH (13:00)
== END 2019-06-16 10:00 | disposition home or self-care (01) ==
LOC: DS 06:30
PROVIDERS: ATTEND Dermatology MOHS-Micrographic Surgery
DX: H25.89 Other age-related cataract (principal); K21.9 Gastro-esophageal reflux disease without esophagitis; F31.89 Other bipolar disorder; F15.90 Other stimulant use, unspecified, uncomplicated; I10 Essential (primary) hypertension; Z72.89 Other problems related to lifestyle; Z98.890 Other specified postprocedural states; E78.5 Hyperlipidemia, unspecified
CPT/HCPCS: 36415; 85025; 85730; 93005; J0171; J2250; J2650; J3490; J3590; J7030; V2632

== ENCOUNTER 2019-07-14 06:52 | Day surgery (SDC) | payer BC, OTHER ==
[2019-07-14] MEDS ORDERED: IRR STERIL WATER FOR IRR 1000 ML BOTTLE IR ONE (06:53)
[2019-07-14] MEDS ORDERED: BALANCED SALT IRRIG SOLN COMB1 500 ML, EPINEPHRINE-PF 1:1000 1 MG IO ONE ×2 (07:00)
[2019-07-14] MEDS ORDERED: TETRACAINE HCL 0.5% OPHT DROP 2 ML BOTTLE ONE ×2 (07:12→07:23)
[2019-07-14] MEDS ORDERED: KETOROLAC 0.5% OPHT DROP 3 ML BOTTLE ONE (07:12)
[2019-07-14] MEDS ORDERED: CYCLOPENTOLATE 1% OPHT DROP 2 ML BOTTLE ONE (07:13)
[2019-07-14] MEDS ORDERED: PHENYLEPHRINE 2.5% OPHT DROP 2 ML BOTTLE ONE (07:13)
[2019-07-14] MEDS ORDERED: CIPROFLOXACIN 0.3% OPHT DROP 2.5 ML BOTTLE ONE (07:13)
[2019-07-14] MEDS ORDERED: PILOCARPINE 1% OPHT DROP 15 ML BOTTLE ONE (07:23)
[2019-07-14] MEDS ORDERED: NEO/POLYMYX B/DEXAME OPHT OINT 3.5 GM TUBE ONE (07:23)
[2019-07-14] MEDS ORDERED: EPINEPHRINE 1 MG/1 ML AMP ONE (07:24)
[2019-07-14] MEDS ORDERED: BALANCED SALT IRRIG SOLN COMB2 15 ML IRRIG.SOLN ONE (07:24)
[2019-07-14] MEDS ORDERED: BUPIVACAINE PF 0.5% 30 ML VIAL ONE (07:24)
[2019-07-14] MEDS ORDERED: LIDOCAINE HCL-MPF 1% 5 ML VIAL ONE (07:24)
[2019-07-14 07:30] LABS: EOSINOPHILS # (AUTO) 0.2 K/uL (0.0-0.7); EOSINOPHILS % (AUTO) 4.7 % (0.0-7.0); HEMATOCRIT 40.9 % (31.2-41.9); HEMOGLOBIN 13.9 g/dL (10.9-14.3); LYMPHOCYTES % (AUTO) 44.7 % (20.5-51.5); MEAN CORPUSCULAR HEMOGLOBIN 30.6 uug (24.7-32.8); MEAN CORPUSCULAR HGB CONC 34 g/dL (32.3-35.6); MONOCYTES # (AUTO) 0.2 K/uL (2.0-10.0); MONOCYTES % (AUTO) 5.5 % (0.0-11.0); NEUTROPHILS % (AUTO) 44.1 % (38.5-71.5); PLATELET COUNT (AUTO) 318 K/uL (179-408); RED BLOOD CELL COUNT(AUTO) 4.55 MIL/uL (3.63-4.92); WHITE BLOOD COUNT (AUTO) 4.5 K/uL (3.8-11.8)
[2019-07-14 07:33] LABS: *BILIRUBIN,URIN NEGATIVE (NEGATIVE); *COLOR,URINE YELLOW (YELLOW); *KETONES,URINE NEGATIVE (NEGATIVE); *UROBILINOGEN,URINE 0.2 E.U./dl (NORMAL); LEUKOCYTE ESTERASE ,URINE TRACE (NEGATIVE); NITRITE, URINE NEGATIVE (NEGATIVE); UGLUCOSE NEGATIVE (NEGATIVE)
[2019-07-14 07:34] LABS: CARBON DIOXIDE 29 mmol/L (21-32); CHLORIDE 108 mmol/L (98-107); CREATININE 0.8 mg/dL (0.6-1.3); GLUCOSE 114 mg/dL (74-106); UREA NITROGEN, BLOOD 16 mg/dL (7-18)
[2019-07-14 07:41] LABS: *BLOOD, URINE TRACE (NEGATIVE); *CLARITY,URINE HAZY (CLEAR)
[2019-07-14 07:46] LABS: BACTERIA,URINE NONE SEEN /HPF (NONE SEEN); MUCUS,URINE FEW /LPF (0-FEW); SQUAMOUS EPITHELIAL CELL,UR FEW /HPF (NONE SEEN)
[2019-07-14] MEDS ORDERED: MIDAZOLAM HCL 2 MG/2 ML VIAL ONE ×2 (08:39→08:47)
[2019-07-14] MEDS ORDERED: FENTANYL CITRATE 100 MCG/2 ML AMPUL ONE (08:39)
[2019-07-14] MEDS ORDERED: prednisoLONE ACET 1% OPHT DROP 5 ML BOTTLE ONE (09:55)
[2019-07-14] MEDS ORDERED: ACETAMINOPHEN 325 MG TABLET ONE (10:35)
== END 2019-07-14 11:00 | disposition home or self-care (01) ==
LOC: DS 06:52
PROVIDERS: ATTEND Dermatology MOHS-Micrographic Surgery
DX: H25.89 Other age-related cataract (principal); H40.9 Unspecified glaucoma; K21.9 Gastro-esophageal reflux disease without esophagitis; F41.9 Anxiety disorder, unspecified; F32.9 Major depressive disorder, single episode, unspecified; F15.90 Other stimulant use, unspecified, uncomplicated; Z72.89 Other problems related to lifestyle; Z98.890 Other specified postprocedural states; Z80.1 Family history of malignant neoplasm of trachea, bronchus and lung
CPT/HCPCS: 36415; 66984; 80048; 81000; 81001; 85025; 85730; J0171 ×2; J2250 ×2; J2650; J3010; J3490 ×2; J7120; V2632; A4217; A4663; J3590

== ENCOUNTER 2019-10-31 07:06 | Outpatient (CLI) | payer BC, OTHER ==
[~2019-10-31 07:06] MED LIST changes: -OMEP20CA11 PO; +OMEP20CA15 PO
[2019-10-31 07:51] LABS: BASOPHILS # (AUTO) 0.1 K/uL (0.0-8.0); BASOPHILS % (AUTO) 1.2 % (0.0-2.0); EOSINOPHILS # (AUTO) 0.2 K/uL (0.0-0.7); EOSINOPHILS % (AUTO) 3.8 % (0.0-7.0); HEMATOCRIT 40.4 % (31.2-41.9); HEMOGLOBIN 13.6 g/dL (10.9-14.3); LYMPHOCYTES # (AUTO) 1.7 K/uL (20.0-40.0); LYMPHOCYTES % (AUTO) 38.6 % (20.5-51.5); MEAN CORPUSCULAR HEMOGLOBIN 29.6 uug (24.7-32.8); MEAN CORPUSCULAR HGB CONC 34 g/dL (32.3-35.6); MONOCYTES # (AUTO) 0.3 K/uL (2.0-10.0); MONOCYTES % (AUTO) 6.6 % (0.0-11.0); NEUTROPHILS # (AUTO) 2.2 K/uL (1.8-8.9); NEUTROPHILS % (AUTO) 49.8 % (38.5-71.5); PLATELET COUNT (AUTO) 337 K/uL (179-408); RED BLOOD CELL COUNT(AUTO) 4.59 MIL/uL (3.63-4.92); WHITE BLOOD COUNT (AUTO) 4.4 K/uL (3.8-11.8)
[2019-10-31 07:55] LABS: *BILIRUBIN,URIN NEGATIVE (NEGATIVE); *CLARITY,URINE CLEAR (CLEAR); *COLOR,URINE YELLOW (YELLOW); *KETONES,URINE NEGATIVE (NEGATIVE); *UROBILINOGEN,URINE 0.2 E.U./dl (NORMAL); LEUKOCYTE ESTERASE ,URINE NEGATIVE (NEGATIVE); NITRITE, URINE NEGATIVE (NEGATIVE); UGLUCOSE NEGATIVE (NEGATIVE)
[2019-10-31 08:11] LABS: BILIRUBIN,TOTAL 0.9 mg/dL (0.2-1.0); CREATININE 0.8 mg/dL (0.6-1.3); MAGNESIUM 2.2 mg/dL (1.8-2.4); POTASSIUM 3.9 mmol/L (3.5-5.1)
[2019-10-31 08:12] LABS: *BLOOD, URINE TRACE (NEGATIVE)
[2019-10-31 08:16] LABS: RBC,URINE 0-3 /HPF (0-3); WBC,URINE 0-3 /HPF (0-3)
[2019-10-31 08:17] LABS: BACTERIA,URINE NONE SEEN /HPF (NONE SEEN); SQUAMOUS EPITHELIAL CELL,UR FEW /HPF (NONE SEEN)
[2019-10-31 08:32] LABS: THYROID STIMULATING HORMONE 1.773 mIU/mL (0.358-3.740)
[2019-11-01 11:09] LABS: INSULIN 7.6 uIU/mL (2.6-24.9)
== END 2019-10-31 23:59 | disposition home or self-care (01) ==
LOC: LAB 07:06
DX: E78.5 Hyperlipidemia, unspecified (principal)
CPT/HCPCS: 82306; 82746; 83525; 83550; 83735; 84443; 84481; 85025; 87086

== ENCOUNTER 2020-04-26 08:00 | Outpatient (CLI) | payer BC, OTHER ==
[2020-04-26 08:13] LABS: BASOPHILS # (AUTO) 0.1 K/uL (0.0-8.0); BASOPHILS % (AUTO) 1.5 % (0.0-2.0); EOSINOPHILS # (AUTO) 0.2 K/uL (0.0-0.7); EOSINOPHILS % (AUTO) 5.7 % (0.0-7.0); HEMATOCRIT 40.6 % (31.2-41.9); HEMOGLOBIN 13.6 g/dL (10.9-14.3); LYMPHOCYTES # (AUTO) 1.6 K/uL (20.0-40.0); LYMPHOCYTES % (AUTO) 39.7 % (20.5-51.5); MEAN CORPUSCULAR HEMOGLOBIN 29.8 uug (24.7-32.8); MEAN CORPUSCULAR HGB CONC 33 g/dL (32.3-35.6); MEAN CORPUSCULAR VOLUME 89.2 fL (75.5-95.3); MONOCYTES # (AUTO) 0.2 K/uL (2.0-10.0); MONOCYTES % (AUTO) 5.8 % (0.0-11.0); NEUTROPHILS % (AUTO) 47.3 % (38.5-71.5); PLATELET COUNT (AUTO) 334 K/uL (179-408); RED BLOOD CELL COUNT(AUTO) 4.55 MIL/uL (3.63-4.92); WHITE BLOOD COUNT (AUTO) 4.1 K/uL (3.8-11.8)
[2020-04-26 08:15] LABS: *BILIRUBIN,URIN NEGATIVE (NEGATIVE); *BLOOD, URINE TRACE (NEGATIVE); *CLARITY,URINE SLIGHTLY CLOUDY (CLEAR); *COLOR,URINE YELLOW (YELLOW); *KETONES,URINE NEGATIVE (NEGATIVE); *UROBILINOGEN,URINE 0.2 E.U./dl (NORMAL); LEUKOCYTE ESTERASE ,URINE TRACE (NEGATIVE); NITRITE, URINE NEGATIVE (NEGATIVE); UGLUCOSE NEGATIVE (NEGATIVE)
[2020-04-26 08:31] LABS: CREATININE 0.9 mg/dL (0.6-1.3); POTASSIUM 4.1 mmol/L (3.5-5.1); TOTAL PROTEIN, SERUM 6.8 g/dL (6.4-8.2)
[2020-04-26 14:37] LABS: BACTERIA,URINE RARE /HPF (NONE SEEN); SQUAMOUS EPITHELIAL CELL,UR FEW /HPF (NONE SEEN)
== END 2020-04-26 23:59 | disposition home or self-care (01) ==
LOC: LAB 08:00
PROVIDERS: ATTEND Surgery
DX: Z01.818 Encounter for other preprocedural examination (principal); K64.4 Residual hemorrhoidal skin tags; K60.1 Chronic anal fissure; Z11.59 Encounter for screening for other viral diseases
CPT/HCPCS: 36415; 71045; 85025; 85730; 93005

== ENCOUNTER 2020-04-28 05:57 | Day surgery (SDC) | payer BC, OTHER ==
[2020-04-28] MEDS ORDERED: BUPIVACAINE PF 0.5% 30 ML VIAL INJ ONE (05:58)
[2020-04-28] MEDS ORDERED: EPHEDRINE SULFATE 50 MG/ML AMPUL IM ONE (05:58)
[2020-04-28] MEDS ORDERED: GLYCOPYRROLATE 0.2 MG/ML VIAL IJ ONE (05:58)
[2020-04-28] MEDS ORDERED: CEFAZOLIN 1 G VIAL IM ONE (05:58)
[2020-04-28] MEDS ORDERED: LIDOCAINE-MPF 2% 5 ML VIAL IJ ONE (05:58)
[2020-04-28] MEDS ORDERED: PROPOFOL 200 MG/20 ML BOTTLE IV ONE (05:58)
[2020-04-28] MEDS ORDERED: ONDANSETRON 4 MG/2 ML VIAL IV ONE (05:58)
[2020-04-28] MEDS ORDERED: LIDOCAINE 1%-EPI 1:100,000 20 ML VIAL IJ ONE (05:58)
[2020-04-28] MEDS ORDERED: SEVOFLURANE 250 ML BOTTLE IH ONE (05:58)
[2020-04-28] MEDS ORDERED: DEXAMETHASONE SOD PHOSPHATE 4 MG INJ IV ONE (05:58)
[2020-04-28] MEDS ORDERED: NEOSTIGMINE METHYLSULFATE 10 MG/10 ML VIAL IM ONE (05:58)
[2020-04-28] MEDS ORDERED: IV LACTATED RINGERS SOLUTION 1,000 ML BAG IV ONE (05:58)
[2020-04-28] MEDS ORDERED: LIDOCAINE 1%-EPI 1:100,000 20 ML VIAL ONE (07:03)
[2020-04-28] MEDS ORDERED: BUPIVACAINE PF 0.5% 30 ML VIAL ONE (07:04)
[2020-04-28] MEDS ORDERED: BACITRACIN/POLYMYXIN B OINT 15 GM TUBE ONE (07:04)
[2020-04-28] MEDS ORDERED: HYDROMORPHONE 2 MG/1 ML DISP.SYRIN ONE (07:08)
[2020-04-28] MEDS ORDERED: ROCURONIUM BROMIDE 50 MG/5 ML VIAL ONE (07:08)
[2020-04-28] MEDS ORDERED: ACETAMINOPHEN 325 MG TABLET PO ONE (09:30)
[2020-04-28] MEDS ORDERED: GABAPENTIN 300 MG CAPSULE PO ONE (09:30)
[2020-04-28] MEDS ORDERED: IBUPROFEN 400 MG TABLET PO ONE (09:30)
[2020-04-28] MEDS ORDERED: ACETAMINOPHEN 325 MG TABLET ONE (09:46)
[2020-04-28] MEDS ORDERED: BENZOCAINE/MENTH/CETYLPYRD LOZENGE MM ONE (10:05)
== END 2020-04-28 11:10 | disposition home or self-care (01) ==
LOC: DS 05:57
PROVIDERS: ATTEND Surgery
DX: K64.4 Residual hemorrhoidal skin tags (principal); K62.5 Hemorrhage of anus and rectum; K21.9 Gastro-esophageal reflux disease without esophagitis; F41.9 Anxiety disorder, unspecified; F32.9 Major depressive disorder, single episode, unspecified; Z79.899 Other long term (current) drug therapy; Z98.890 Other specified postprocedural states; Z82.49 Family history of ischemic heart disease and other diseases of the circulatory system
CPT/HCPCS: 46260; J0690; J1100; J1170; J2405; J2710; J3490 ×8; J7120; A4649

== ENCOUNTER 2020-07-20 12:24 | Outpatient (CLI) | payer BC, OTHER | END 2020-07-20 23:59 | disposition home or self-care (01) | LOC: US 12:24 | DX: E04.2 Nontoxic multinodular goiter (principal) ==

== ENCOUNTER 2020-11-01 07:34 | Outpatient (CLI) | payer BC, OTHER ==
[2020-11-01 07:58] LABS: *BILIRUBIN,URIN NEGATIVE (NEGATIVE); *CLARITY,URINE CLEAR (CLEAR); *COLOR,URINE YELLOW (YELLOW); *KETONES,URINE NEGATIVE (NEGATIVE); *UROBILINOGEN,URINE 0.2 E.U./dl (NORMAL); LEUKOCYTE ESTERASE ,URINE 1+ (NEGATIVE); NITRITE, URINE NEGATIVE (NEGATIVE); PH,URINE 6.5 (5.0-8.0); UGLUCOSE NEGATIVE (NEGATIVE)
[2020-11-01 07:59] LABS: BASOPHILS % (AUTO) 0.9 % (0.0-2.0); EOSINOPHILS # (AUTO) 0.2 K/uL (0.0-0.7); EOSINOPHILS % (AUTO) 3.6 % (0.0-7.0); HEMATOCRIT 39.5 % (31.2-41.9); HEMOGLOBIN 13.6 g/dL (10.9-14.3); LYMPHOCYTES # (AUTO) 1.9 K/uL (20.0-40.0); MEAN CORPUSCULAR HEMOGLOBIN 30.2 uug (24.7-32.8); MEAN CORPUSCULAR HGB CONC 34 g/dL (32.3-35.6); MEAN CORPUSCULAR VOLUME 87.8 fL (75.5-95.3); MONOCYTES # (AUTO) 0.5 K/uL (2.0-10.0); MONOCYTES % (AUTO) 8.4 % (0.0-11.0); NEUTROPHILS # (AUTO) 2.7 K/uL (1.8-8.9); NEUTROPHILS % (AUTO) 51.1 % (38.5-71.5); PLATELET COUNT (AUTO) 440 K/uL (179-408); RED BLOOD CELL COUNT(AUTO) 4.49 MIL/uL (3.63-4.92); WHITE BLOOD COUNT (AUTO) 5.4 K/uL (3.8-11.8)
[2020-11-01 08:02] LABS: *BLOOD, URINE TRACE (NEGATIVE)
[2020-11-01 08:30] LABS: IRON, SERUM 84 ug/dL (50-175)
[2020-11-01 08:45] LABS: ALANINE AMINOTRANSFERASE 30 U/L (14-59); ALKALINE PHOSPHATASE 92 U/L (50-136); ASPARTATE AMINOTRANSFERASE 22 U/L (15-37); BILIRUBIN,TOTAL 0.7 mg/dL (0.2-1.0); CARBON DIOXIDE 28 mmol/L (21-32); CHLORIDE 105 mmol/L (98-107); CHOLESTEROL 172 mg/dL (<200); CREATININE 0.9 mg/dL (0.6-1.3); FERRITIN 163 ng/mL (8-252); GLUCOSE 109 mg/dL (74-106); HDL CHOLESTEROL 68 mg/dL (40-60); POTASSIUM 4.3 mmol/L (3.5-5.1); TOTAL PROTEIN, SERUM 7.3 g/dL (6.4-8.2); TRIGLYCERIDES 71 MG/DL (30-150); UREA NITROGEN, BLOOD 13 mg/dL (7-18)
[2020-11-01 10:24] LABS: THYROID STIMULATING HORMONE 2.252 mIU/mL (0.358-3.740)
[2020-11-01 13:30] LABS: RBC,URINE 0-3 /HPF (0-3); SQUAMOUS EPITHELIAL CELL,UR FEW /HPF (NONE SEEN); WBC,URINE 0-3 /HPF (0-3)
[2020-11-01 13:31] LABS: BACTERIA,URINE NONE SEEN /HPF (NONE SEEN)
== END 2020-11-01 23:59 | disposition home or self-care (01) ==
LOC: LAB 07:34
DX: K21.9 Gastro-esophageal reflux disease without esophagitis (principal); E78.5 Hyperlipidemia, unspecified; R00.2 Palpitations
CPT/HCPCS: 82306; 83550; 84443; 84480; 85025; 85651; 86140; 87086

== ENCOUNTER 2021-02-21 10:22 | Outpatient (CLI) | payer BC, OTHER | END 2021-02-21 23:59 | disposition home or self-care (01) | LOC: XRAY 10:22 | PROVIDERS: ATTEND Internal Medicine | DX: M19.011 Primary osteoarthritis, right shoulder (principal); M81.0 Age-related osteoporosis without current pathological fracture | CPT/HCPCS: 73030 ==

== ENCOUNTER 2021-06-10 07:10 | Outpatient (CLI) | payer BC, OTHER ==
[2021-06-10 08:30] LABS: HEMATOCRIT 40.9 % (31.2-41.9); MEAN CORPUSCULAR HEMOGLOBIN 30.3 uug (24.7-32.8); MEAN CORPUSCULAR VOLUME 89.2 fL (75.5-95.3); PLATELET COUNT (AUTO) 300 K/uL (179-408)
[2021-06-10 08:46] LABS: *BILIRUBIN,URIN NEGATIVE (NEGATIVE); *CLARITY,URINE CLEAR (CLEAR); *COLOR,URINE YELLOW (YELLOW); *KETONES,URINE NEGATIVE (NEGATIVE); *UROBILINOGEN,URINE 0.2 E.U./dl (NORMAL); LEUKOCYTE ESTERASE ,URINE TRACE (NEGATIVE); NITRITE, URINE NEGATIVE (NEGATIVE); UGLUCOSE NEGATIVE (NEGATIVE)
[2021-06-10 08:52] LABS: THYROID STIMULATING HORMONE 1.796 mIU/mL (0.358-3.740)
[2021-06-10 09:02] LABS: *BLOOD, URINE TRACE (NEGATIVE)
[2021-06-10 09:13] LABS: CREATININE 0.8 mg/dL (0.6-1.3); POTASSIUM 4.2 mmol/L (3.5-5.1); TOTAL PROTEIN, SERUM 7.1 g/dL (6.4-8.2)
[2021-06-10 12:43] LABS: BACTERIA,URINE NONE SEEN /HPF (NONE SEEN); RBC,URINE 0-3 /HPF (0-3); SQUAMOUS EPITHELIAL CELL,UR FEW /HPF (NONE SEEN); WBC,URINE 0-3 /HPF (0-3)
== END 2021-06-10 23:59 | disposition home or self-care (01) ==
LOC: LAB 07:10
PROVIDERS: ATTEND Internal Medicine
DX: K21.9 Gastro-esophageal reflux disease without esophagitis (principal); R73.01 Impaired fasting glucose
CPT/HCPCS: 36415; 82306; 83550; 84443; 85025; 85651; 86140; 86677

== ENCOUNTER 2022-01-06 07:56 | Outpatient (CLI) | payer BC, OTHER | END 2022-01-06 23:59 | disposition home or self-care (01) | LOC: LAB 07:56 | PROVIDERS: ATTEND Internal Medicine Gastroenterology | DX: Z01.812 Encounter for preprocedural laboratory examination (principal); Z20.822 Contact with and (suspected) exposure to COVID-19 ==

== ENCOUNTER 2022-01-09 07:08 | Day surgery (SDC) | payer BC, OTHER ==
[2022-01-09] MEDS ORDERED: LIDOCAINE-MPF 2% 5 ML VIAL IJ ONE (07:09)
[2022-01-09] MEDS ORDERED: PROPOFOL 200 MG/20 ML BOTTLE IV ONE (07:09)
[2022-01-09] MEDS ORDERED: ONDANSETRON 4 MG/2 ML VIAL IV ONE (07:09)
[2022-01-09] MEDS ORDERED: FENTANYL CITRATE 100 MCG/2 ML AMPUL ONE (07:34)
[2022-01-09 08:03] LABS: HEMATOCRIT 43.2 % (31.2-41.9); MEAN CORPUSCULAR HEMOGLOBIN 30.7 uug (24.7-32.8); MEAN CORPUSCULAR VOLUME 87.5 fL (75.5-95.3); PLATELET COUNT (AUTO) 391 K/uL (179-408)
[2022-01-09 08:08] LABS: BILIRUBIN,TOTAL 1.5 mg/dL (0.2-1.0); CREATININE 1.1 mg/dL (0.6-1.3); POTASSIUM 3.7 mmol/L (3.5-5.1); TOTAL PROTEIN, SERUM 7.4 g/dL (6.4-8.2)
[2022-01-09 08:38] LABS: *BILIRUBIN,URIN 1+ (NEGATIVE); *CLARITY,URINE CLEAR (CLEAR); *COLOR,URINE YELLOW (YELLOW); *KETONES,URINE NEGATIVE (NEGATIVE); *UROBILINOGEN,URINE 0.2 E.U./dl (NORMAL); LEUKOCYTE ESTERASE ,URINE TRACE (NEGATIVE); NITRITE, URINE NEGATIVE (NEGATIVE); UGLUCOSE NEGATIVE (NEGATIVE)
[2022-01-09 08:43] LABS: *BLOOD, URINE TRACE (NEGATIVE)
[2022-01-09] MEDS ORDERED: BALANCED SALT IRRIG SOLN COMB2 15 ML IRRIG.SOLN ONE (10:38)
[2022-01-09 17:03] LABS: BACTERIA,URINE FEW /HPF (NONE SEEN); SQUAMOUS EPITHELIAL CELL,UR FEW /HPF (NONE SEEN)
== END 2022-01-09 11:35 | disposition home or self-care (01) ==
LOC: DS 07:08
PROVIDERS: ATTEND Internal Medicine Gastroenterology
DX: Z12.11 Encounter for screening for malignant neoplasm of colon (principal); R13.10 Dysphagia, unspecified; K64.8 Other hemorrhoids; K63.89 Other specified diseases of intestine; K21.00 Gastro-esophageal reflux disease with esophagitis, without bleeding; K44.9 Diaphragmatic hernia without obstruction or gangrene; K31.89 Other diseases of stomach and duodenum; K29.50 Unspecified chronic gastritis without bleeding; E78.00 Pure hypercholesterolemia, unspecified; F41.9 Anxiety disorder, unspecified; F32.9 Major depressive disorder, single episode, unspecified; Z79.899 Other long term (current) drug therapy; Z98.890 Other specified postprocedural states; Z86.010 Personal history of colon polyps
CPT/HCPCS: 36415; 43239; 45378; 71045; 80053; 81001; 85025; 85730; 93005; J2405; J3010; J3490; A4663

== ENCOUNTER 2022-02-28 08:46 | Outpatient (CLI) | payer BC, OTHER | END 2022-02-28 23:59 | disposition home or self-care (01) | LOC: RAD 08:46 | PROVIDERS: ATTEND Internal Medicine | DX: E04.9 Nontoxic goiter, unspecified (principal); E04.2 Nontoxic multinodular goiter ==

== ENCOUNTER 2022-05-26 12:16 | Outpatient (CLI) | payer BC, OTHER | END 2022-05-26 23:59 | disposition home or self-care (01) | LOC: RAD 12:16 | PROVIDERS: ATTEND Internal Medicine | DX: M51.26 Other intervertebral disc displacement, lumbar region (principal); M51.24 Other intervertebral disc displacement, thoracic region; Z86.69 Personal history of other diseases of the nervous system and sense organs | CPT/HCPCS: 72072; 72110 ==

== ENCOUNTER 2022-07-11 06:45 | Outpatient (CLI) | payer BC, OTHER ==
[2022-07-11 07:28] LABS: BILIRUBIN,TOTAL 0.7 mg/dL (0.2-1.0); CREATININE 0.9 mg/dL (0.6-1.3); POTASSIUM 4.4 mmol/L (3.5-5.1); TOTAL PROTEIN, SERUM 6.7 g/dL (6.4-8.2)
== END 2022-07-11 23:59 | disposition home or self-care (01) ==
LOC: LAB 06:45
PROVIDERS: ATTEND Internal Medicine
DX: N18.9 Chronic kidney disease, unspecified (principal)
CPT/HCPCS: 36415

== ENCOUNTER 2022-07-28 18:51 | Emergency (ER) | payer SELFPAY | END 2022-07-28 20:33 | disposition left against medical advice (07) | LOC: ER 19:37 | DX: Z53.21 Procedure and treatment not carried out due to patient leaving prior to being seen by health care provider (principal) ==

== ENCOUNTER 2022-07-28 22:57 | Emergency (ER) | payer BC ==
[~2022-07-28] VITALS: Ht 167.6 cm; Wt 73.5 kg
--- NOTE | 2022-07-28 23:18 | NUR ---
DR UREÑA INTO EVAL PATIENT.
--- NOTE | 2022-07-28 23:37 | NUR ---
Patient discharged to home in stable condition with taking patient home. Written and verbal after care instructions given. Patient verbalizes understanding of instructions. Stressed follow up or return to ER for worsening s/s.
[2022-07-28 23:38] VITALS: BP 135/89
== END 2022-07-28 23:38 | disposition home or self-care (01) ==
LOC: ER 22:57
DX: S00.11XA Contusion of right eyelid and periocular area, initial encounter (principal); X58.XXXA Exposure to other specified factors, initial encounter; Y92.89 Other specified places as the place of occurrence of the external cause; H11.31 Conjunctival hemorrhage, right eye; K21.9 Gastro-esophageal reflux disease without esophagitis; Z79.899 Other long term (current) drug therapy
CPT/HCPCS: A4663

== ENCOUNTER 2022-10-09 15:22 | Emergency (ER) | payer BC, OTHER ==
[~2022-10-09] VITALS: Ht 167.6 cm; Wt 59.0 kg
[2022-10-09] MEDS ORDERED: TETRACAINE HCL 0.5% OPHT DROP 2 ML BOTTLE ONE (16:32)
[2022-10-09] MEDS ORDERED: FLUORESCEIN SODIUM 1 MG STRIP ONE (16:32)
[2022-10-09] MEDS ORDERED: ERYT3.5O24 LEFTEYE (17:35)
== END 2022-10-09 17:48 | disposition home or self-care (01) ==
LOC: ER 15:25
DX: H57.12 Ocular pain, left eye (principal); H40.9 Unspecified glaucoma; K21.9 Gastro-esophageal reflux disease without esophagitis; Z79.899 Other long term (current) drug therapy
CPT/HCPCS: A4663

== ENCOUNTER 2022-11-15 06:51 | Outpatient (CLI) | payer BC, OTHER ==
[~2022-11-15 06:51] MED LIST changes: +ERYT3.5O24 LEFTEYE
[2022-11-15 07:13] LABS: HEMATOCRIT 40.3 % (31.2-41.9); MEAN CORPUSCULAR HEMOGLOBIN 29.6 uug (24.7-32.8); MEAN CORPUSCULAR VOLUME 87.7 fL (75.5-95.3); PLATELET COUNT (AUTO) 342 K/uL (179-408)
[2022-11-15 07:15] LABS: *BILIRUBIN,URIN NEGATIVE (NEGATIVE); *CLARITY,URINE CLEAR (CLEAR); *COLOR,URINE YELLOW (YELLOW); *KETONES,URINE NEGATIVE (NEGATIVE); *UROBILINOGEN,URINE 0.2 E.U./dl (NORMAL); LEUKOCYTE ESTERASE ,URINE TRACE (NEGATIVE); NITRITE, URINE NEGATIVE (NEGATIVE); PH,URINE 6.5 (5.0-8.0); UGLUCOSE NEGATIVE (NEGATIVE)
[2022-11-15 07:39] LABS: THYROID STIMULATING HORMONE 2.23 mIU/mL (0.358-3.740)
[2022-11-15 07:43] LABS: BILIRUBIN,TOTAL 0.7 mg/dL (0.2-1.0); CREATININE 0.8 mg/dL (0.6-1.3); MAGNESIUM 2.1 mg/dL (1.8-2.4); POTASSIUM 3.7 mmol/L (3.5-5.1); TOTAL PROTEIN, SERUM 6.9 g/dL (6.4-8.2); URIC ACID 4.8 mg/dL (2.6-6.0)
[2022-11-15 07:50] LABS: *BLOOD, URINE TRACE (NEGATIVE)
[2022-11-15 10:12] LABS: BACTERIA,URINE FEW /HPF (NONE SEEN); RBC,URINE 0-3 /HPF (0-3); SQUAMOUS EPITHELIAL CELL,UR MODERATE /HPF (NONE SEEN)
== END 2022-11-15 23:59 | disposition home or self-care (01) ==
LOC: LAB 06:51
PROVIDERS: ATTEND Internal Medicine
DX: E04.1 Nontoxic single thyroid nodule (principal)
CPT/HCPCS: 36415; 82306; 83550; 83735; 84443; 84550; 85025; 85651; 86140

== ENCOUNTER 2022-12-20 10:01 | Outpatient (CLI) | payer BC, OTHER | END 2022-12-20 23:59 | disposition home or self-care (01) | LOC: RAD 10:01 | PROVIDERS: ATTEND Internal Medicine | DX: E04.1 Nontoxic single thyroid nodule (principal) ==

== ENCOUNTER → 2023-03-02 | Outpatient (CLI) | payer BC, OTHER | END | disposition home or self-care (01) | LOC: LAB 10:58 | PROVIDERS: ATTEND Internal Medicine | DX: M25.562 Pain in left knee (principal) | CPT/HCPCS: 73562 ==

== ENCOUNTER 2023-09-03 06:45 | Day surgery (SDC) | payer BC, OTHER ==
[2023-09-03] MEDS ORDERED: PROPOFOL 200 MG/20 ML BOTTLE ONE ×2 (08:00)
[2023-09-03] MEDS ORDERED: NEO/POLYMYX B/DEXAME OPHT OINT 3.5 GM TUBE ONE ×2 (08:06→11:03)
[2023-09-03] MEDS ORDERED: LIDOCAINE 2%-EPI 1:100,000 20 ML VIAL ONE (08:06)
[2023-09-03] MEDS ORDERED: BUPIVACAINE PF 0.5% 30 ML VIAL ONE (08:06)
[2023-09-03] MEDS ORDERED: MIDAZOLAM HCL 2 MG/2 ML VIAL ONE (08:07)
[2023-09-03] MEDS ORDERED: FENTANYL CITRATE 100 MCG/2 ML AMPUL ONE (09:37)
[2023-09-03] MEDS ORDERED: MEPERIDINE 25 MG/1 ML DISP.SYRIN ONE (09:42)
[2023-09-03] MEDS ORDERED: HYDROMORPHONE 1 MG/1 ML DISP.SYRIN ONE (09:52)
[2023-09-03] MEDS ORDERED: ONDANSETRON 4 MG/2 ML VIAL ONE (09:52)
[2023-09-03 10:27] VITALS: TEMP 97.3
[2023-09-03] MEDS ORDERED: TETRACAINE HCL 0.5% OPHT DROP 2 ML BOTTLE ONE (11:02)
[2023-09-03] MEDS ORDERED: NEO/POLYMYX B/DEXAM OPHT DROP 5 ML BOTTLE ONE (11:04)
[2023-09-03] MEDS ORDERED: TRIAMCINOLONE ACETONIDE 40 MG/1 ML VIAL ONE (11:06)
== END 2023-09-03 11:25 | disposition home or self-care (01) ==
LOC: DS 06:45
PROVIDERS: ATTEND Dermatology MOHS-Micrographic Surgery
DX: H02.105 Unspecified ectropion of left lower eyelid (principal); H02.102 Unspecified ectropion of right lower eyelid; K21.9 Gastro-esophageal reflux disease without esophagitis; F41.9 Anxiety disorder, unspecified; F32.9 Major depressive disorder, single episode, unspecified; Z79.899 Other long term (current) drug therapy; Z98.890 Other specified postprocedural states
CPT/HCPCS: A4649; J1170; J2175; J2250; J2405; J3010; J3301; J3490; J3590